=== PATIENT | female | born 1975 | race Caucasian/White ===

== ENCOUNTER 2017-02-02 09:08 | Emergency (ER) | payer SELFPAY ==
--- NOTE | 2017-02-03 20:34 | ER ---
ADMIT: 02/02/2017 RM/LOC: ER [facility] MR#: [id number] [address] [id number] HENRRY SONG [address] [place] [address] Emergency Room Report SEX: F AGE: 41 : 1975 DATE: 02/02/2017 The patient is a 41-year-old, who presents to the emergency room with dental pain. She had a small cavity at the base of tooth 30 and she did make an appointment with [facility], but not until Sunday. She has had 3 days of solid pain. She feels like she may have developed an abscess now. It is starting to swell on her right face. She has a history of fibromyalgia, elvis surgery, gastric bypass, hiatal hernia, back repair. Takes gabapentin, Motrin, and Flexeril. She says the Motrin has not done much for her. Heat and cold makes it worse. She denies being a smoker. At this point, after the physical examination, I noticed a small cavity at the base of tooth 30, which I will go ahead and do a dental block with bupivacaine and epi 0.5%, two jets of that. She reacted very well to the dental block, was very helpful. I then used a catalyst on a base and patch the area to try to close the cavity and give her more time with relief until she sees her dentist. She was treated with clindamycin, a prescription written and [place]. Instructions given and a note for work. CLINICAL IMPRESSION: Abscessed tooth, dental caries, and toothache. ANI Galdamez / Cesar Arias MD / teresa JOB #: [id number] CC: Cesar Arias MD, Attending Physician UNKNOWN, Family Physician Saurabh Vila MD
== END 2017-02-02 10:20 | disposition home or self-care (01) ==
LOC: ER 09:08
PROC: 3E0T3BZ Introduction of Anesthetic Agent into Peripheral Nerves and Plexi, Percutaneous Approach (ICD-10-PCS; principal; 2017-02-02)
DX: K04.7 Periapical abscess without sinus (principal); K02.9 Dental caries, unspecified; Z90.49 Acquired absence of other specified parts of digestive tract; Z79.899 Other long term (current) drug therapy